=== PATIENT | female | born 1985 | race Caucasian/White ===

== ENCOUNTER 2018-07-17 05:34 | Inpatient (IN) | payer OTHER ==
[2018-07-17] MEDS ORDERED: AZITHROMYCIN 500 MG PDS 500 MG in SODIUM CHLORIDE 0.9% 250 ML 250 ML IV ONE (05:36)
[2018-07-17] MEDS ORDERED: CEFAZOLIN SODIUM 1 GM PDS 1 GM in SODIUM CHLORIDE 0.9% 50 ML 50 ML IV ONE (05:36)
[2018-07-17] MEDS ORDERED: CITRIC ACID/SODIUM CITRATE SOL PO SCH (05:45)
[2018-07-17] MEDS: SODIUM CHLORIDE 0.9% FLUSH 10 ML SOL IV SCH ×3 (05:50→22:43)
[2018-07-17] MEDS: LACTATED RINGERS 1,000 ML IV SCH ×4 (05:50→16:48)
[2018-07-17] MEDS ORDERED: CEFAZOLIN SODIUM 1 GM PDS ONE (06:40)
[2018-07-17] MEDS ORDERED: MORPHINE SULFATE 0.5 MG/ML SOL ONE (06:40)
[2018-07-17] MEDS ORDERED: OXYTOCIN 10000 MU/ML SOL ONE ×2 (06:40)
[2018-07-17] MEDS ORDERED: EPHEDRINE SULFATE 50 MG/ML SOL ONE (07:22)
[2018-07-17] MEDS ORDERED: ONDANSETRON HCL 4 MG/2 ML SOL ONE (07:22)
[2018-07-17] MEDS ORDERED: LACTATED RINGERS 1,000 ML with OXYTOCIN 10000 MU/ML 20 MU IV ONE (07:37)
[2018-07-17 07:40] LABS: APPEARANCE,URINE Slightly Cloudy; BILIRUBIN,URINE NEGATIVE (NEGATIVE); COLOR,URINE Yellow; GLUCOSE, URINE (UA) NEGATIVE (NEGATIVE); KETONES,URINE NEGATIVE (NEGATIVE); LEUKOCYTE ESTERASE ,URINE 2+ (NEGATIVE); NITRATE,URINE NEGATIVE (NEGATIVE); OCCULT BLOOD,URINE NEGATIVE (NEG-TRACE); UROBILINOGEN,URINE 0.2 (0.2-1.0 EU)
[2018-07-17 07:59] LABS: BACTERIA 2+ (< 1+); EPITHELIAL CELLS 15-20 (SQUAMOUS); RBC,URINE 0-1 (0-3AV/HPF); WBC,URINE 25-35 (0-5AV/HPF)
[2018-07-17 08:00] LABS: CRYSTALS 8-15 CALCIUM OXALATE (0-3 AVE/HPF)
[2018-07-17] MEDS ORDERED: BENZOCAINE/MENTHOL 1 SPR TOP PRN (09:06)
[2018-07-17] MEDS ORDERED: METHYLERGONOVINE MALEATE 0.2 MG TAB PO PRN (09:06)
[2018-07-17] MEDS ORDERED: DIPHENHYDRAMINE 25 MG CAP PO PRN (09:06)
[2018-07-17] MEDS ORDERED: FLEET ENEMA PR PRN (09:06)
[2018-07-17] MEDS ORDERED: TEMAZEPAM 15MG 15 MG CAP PO PRN (09:06)
[2018-07-17] MEDS ORDERED: ONDANSETRON HCL 4 MG/2 ML SOL IV PRN (09:06)
[2018-07-17] MEDS ORDERED: WITCH HAZEL 1 EA PAD TOP PRN (09:06)
[2018-07-17] MEDS ORDERED: BISACODYL 10 MG SUP PR PRN (09:06)
[2018-07-17] MEDS: KETOROLAC TROMETHAMINE 30 MG/ML SOL IV PRN ×2 (10:03→18:19)
[2018-07-17] MEDS: APAP/HYDROCODONE 1 EACH TABLET PO PRN ×2 (13:25→23:37)
[2018-07-17] MEDS: DOCUSATE SODIUM 100 MG SGL PO SCH (20:49)
[2018-07-17] MEDS: IBUPROFEN 600 MG TAB PO PRN (20:49)
[2018-07-18] MEDS: LACTATED RINGERS 1,000 ML IV SCH ×2 (02:03→09:31)
[2018-07-18] MEDS: KETOROLAC TROMETHAMINE 30 MG/ML SOL IV PRN (02:03)
[2018-07-18] MEDS: IBUPROFEN 600 MG TAB PO PRN ×3 (07:40→22:37)
[2018-07-18] MEDS: SODIUM CHLORIDE 0.9% FLUSH 10 ML SOL IV SCH ×4 (07:41→22:46)
[2018-07-18] MEDS: APAP/HYDROCODONE 1 EACH TABLET PO PRN ×3 (07:42→16:32)
[2018-07-18] MEDS: DOCUSATE SODIUM 100 MG SGL PO SCH ×2 (09:52→20:12)
[2018-07-18 17:14] LABS: BASOPHILS % (AUTO) 0 % (0-3); EOSINOPHILS % (AUTO) 4 % (0-9); HEMATOCRIT 33 % (35-47); LYMPHOCYTES % (AUTO) 17.5 % (10-50); MEAN CORPUSCULAR HEMOGLOBIN 29.4 pg (27.0-32.0); MEAN CORPUSCULAR HGB CONC 33.3 gm/dl (32.0-36.0); MEAN CORPUSCULAR VOLUME 88 fL (81-99); MONOCYTES % (AUTO) 7.7 % (0-12); NEUTROPHILS % (AUTO) 70.1 % (37-80)
[2018-07-18 17:26] LABS: ALBUMIN 2.4 gm/dl (3.4-5.0); BILIRUBIN,TOTAL 0.2 mg/dl (0.2-1.0); CALCIUM 8.2 mg/dl (8.5-10.1); CARBON DIOXIDE 27.3 mEq/L (21-32); CREATININE 0.72 mg/dl (0.60-1.00); POTASSIUM 3.9 mMol/L (3.5-5.1); TOTAL PROTEIN 6.1 gm/dl (6.4-8.2)
[2018-07-18] MEDS ORDERED: ENOXAPARIN 80 MG SOL SC ONE (18:37)
[2018-07-18] MEDS: ENOXAPARIN 80 MG SOL SC SCH (18:42)
[2018-07-18] MEDS ORDERED: OXYCODONE HYDROCHLORIDE 5 MG TAB ONE ×2 (20:09→23:42)
[2018-07-18] MEDS: OXYCODONE HYDROCHLORIDE 5 MG TAB PO SCH ×2 (20:11→23:44)
[2018-07-19] MEDS ORDERED: OXYCODONE HYDROCHLORIDE 5 MG TAB ONE ×6 (03:46→23:41)
[2018-07-19] MEDS: OXYCODONE HYDROCHLORIDE 5 MG TAB PO SCH ×6 (03:47→23:44)
[2018-07-19] MEDS: IBUPROFEN 600 MG TAB PO PRN (04:19)
[2018-07-19] MEDS ORDERED: ENOXAPARIN 80 MG SOL SC ONE ×2 (06:08→18:47)
[2018-07-19] MEDS: SODIUM CHLORIDE 0.9% FLUSH 10 ML SOL IV SCH ×4 (06:20→21:55)
[2018-07-19] MEDS: ENOXAPARIN 80 MG SOL SC SCH ×2 (06:23→19:15)
[2018-07-19 07:33] LABS: BASOPHILS % (AUTO) 0 % (0-3); EOSINOPHILS % (AUTO) 5 % (0-9); HEMATOCRIT 30 % (35-47); HEMOGLOBIN 9.7 gm/dl (12.0-15.5); MEAN CORPUSCULAR HEMOGLOBIN 29.3 pg (27.0-32.0); MEAN CORPUSCULAR HGB CONC 32.5 gm/dl (32.0-36.0); MEAN CORPUSCULAR VOLUME 90 fL (81-99); MONOCYTES % (AUTO) 5.6 % (0-12); NEUTROPHILS % (AUTO) 66.7 % (37-80)
[2018-07-19 07:48] LABS: CALCIUM 7.9 mg/dl (8.5-10.1); CARBON DIOXIDE 24.6 mEq/L (21-32); CREATININE 0.53 mg/dl (0.60-1.00); POTASSIUM 3.8 mMol/L (3.5-5.1)
[2018-07-19] MEDS: DOCUSATE SODIUM 100 MG SGL PO SCH ×2 (08:38→20:28)
[2018-07-19] MEDS ORDERED: ACETAMINOPHEN 500 MG 500 MG TAB ONE ×2 (10:45→18:42)
[2018-07-19] MEDS ORDERED: POLYETHYLENE GLYCOL 17 GM/1 TBS PDS ONE (10:46)
[2018-07-19] MEDS: POLYETHYLENE GLYCOL 17 GM/1 TBS PDS PO SCH (10:49)
[2018-07-19] MEDS: ACETAMINOPHEN 500 MG 500 MG TAB PO PRN ×2 (10:49→18:51)
[2018-07-19] MEDS ORDERED: WARFARIN SODIUM 5 MG TAB ONE (18:47)
[2018-07-19] MEDS: WARFARIN SODIUM 5 MG TAB PO SCH (19:15)
[2018-07-19 19:20] LABS: INR 0.89 (0.86-1.12)
[2018-07-20] MEDS ORDERED: OXYCODONE HYDROCHLORIDE 5 MG TAB ONE ×5 (04:35→20:18)
[2018-07-20] MEDS: OXYCODONE HYDROCHLORIDE 5 MG TAB PO SCH ×5 (04:38→20:24)
[2018-07-20] MEDS ORDERED: ENOXAPARIN 80 MG SOL SC ONE ×2 (06:35→18:24)
[2018-07-20] MEDS: ENOXAPARIN 80 MG SOL SC SCH ×2 (06:38→18:29)
[2018-07-20] MEDS: SODIUM CHLORIDE 0.9% FLUSH 10 ML SOL IV SCH ×2 (06:39→15:14)
[2018-07-20 07:19] LABS: BASOPHILS % (AUTO) 0 % (0-3); EOSINOPHILS % (AUTO) 4 % (0-9); HEMATOCRIT 32 % (35-47); HEMOGLOBIN 10.7 gm/dl (12.0-15.5); LYMPHOCYTES % (AUTO) 18.7 % (10-50); MEAN CORPUSCULAR HEMOGLOBIN 29.9 pg (27.0-32.0); MEAN CORPUSCULAR HGB CONC 33.7 gm/dl (32.0-36.0); MEAN CORPUSCULAR VOLUME 89 fL (81-99); MONOCYTES % (AUTO) 4.6 % (0-12); NEUTROPHILS % (AUTO) 72.2 % (37-80)
[2018-07-20 07:24] LABS: CALCIUM 8.4 mg/dl (8.5-10.1); CARBON DIOXIDE 26.6 mEq/L (21-32); CREATININE 0.55 mg/dl (0.60-1.00); POTASSIUM 3.8 mMol/L (3.5-5.1)
[2018-07-20 07:38] LABS: INR 0.89 (0.86-1.12)
[2018-07-20] MEDS ORDERED: POLYETHYLENE GLYCOL 17 GM/1 TBS PDS ONE (08:34)
[2018-07-20] MEDS: POLYETHYLENE GLYCOL 17 GM/1 TBS PDS PO SCH (08:54)
[2018-07-20] MEDS: DOCUSATE SODIUM 100 MG SGL PO SCH ×2 (08:54→20:24)
[2018-07-20] MEDS ORDERED: WARFARIN SODIUM 5 MG TAB ONE (18:25)
[2018-07-20] MEDS: WARFARIN SODIUM 5 MG TAB PO SCH (18:29)
[2018-07-21] MEDS: OXYCODONE HYDROCHLORIDE 5 MG TAB PO SCH ×3 (00:07→07:52)
[2018-07-21] MEDS ORDERED: OXYCODONE HYDROCHLORIDE 5 MG TAB ONE ×3 (04:09→07:50)
[2018-07-21] MEDS ORDERED: ENOXAPARIN 80 MG SOL SC ONE (06:13)
[2018-07-21] MEDS: ENOXAPARIN 80 MG SOL SC SCH (06:28)
[2018-07-21] MEDS ORDERED: POLYETHYLENE GLYCOL 17 GM/1 TBS PDS ONE (07:50)
[2018-07-21 07:54] LABS: INR 0.92 (0.86-1.12)
[2018-07-21] MEDS ORDERED: MAGNESIUM HYDROXIDE 30 ML SUS PO PRN (08:30)
[2018-07-21] MEDS: DOCUSATE SODIUM 100 MG SGL PO SCH (09:17)
[2018-07-21] MEDS: POLYETHYLENE GLYCOL 17 GM/1 TBS PDS PO SCH (09:17)
[2018-07-21 09:43] VITALS: BP 131/84; PULSE 95; RESP 18; TEMP 98.4; O2SAT 100
== END 2018-07-21 11:30 | disposition home or self-care (01) | DRG 786 ==
LOC: OB 05:34 → EDSTATUS 07:00
PROVIDERS: ADMIT Family Medicine; ATTEND Family Medicine
PROC: 6A550ZT Pheresis of Cord Blood Stem Cells, Single (ICD-10-PCS; 2018-07-17)
PROC: 10D00Z1 Extraction of Products of Conception, Low, Open Approach (ICD-10-PCS; principal; 2018-07-17 07:00)
DX: O82 Encounter for cesarean delivery without indication (principal); O88.83 Other embolism in the puerperium; Z3A.39 39 weeks gestation of pregnancy; Z37.0 Single live birth; R06.02 Shortness of breath; R07.9 Chest pain, unspecified; M25.519 Pain in unspecified shoulder
CPT/HCPCS: 36415; 59025; 71275; 80048; 80053; 81001; 85018; 85025; 85610; 87088; 94760; 94762; J0690; J1650; J1885; J2274; J2405; J2590; Q9967; A9270-GY; J3490